=== PATIENT | female | born 1995 | race Caucasian/White ===

== ENCOUNTER 2022-04-28 07:00 | Inpatient (IN) | payer OTHER, SELFPAY ==
[2022-04-28] VITALS (7 sets, daily range): BP systolic 116–138; BP diastolic 60–83
[~2022-04-28] VITALS: Ht 167.6 cm; Wt 79.9 kg
[~2022-04-28 07:00] MED LIST: GNP28TAB2 PO; ZYRTTAB8 PO
[2022-04-28] MEDS ORDERED: OXYTOCIN 30 UNITS IN 0.9% NaCl 500ML IV BAG (J2590) As Ordered ONE ×2 (07:16→11:01)
[2022-04-28] MEDS ORDERED: PHENYLephrine 500MCG 5ML (100MCG/ML) SYRINGE As Ordered ONE (07:16)
[2022-04-28] MEDS ORDERED: ePHEDrine SULFATE 25 MG/5 ML(5MG/ML) SYRINGE As Ordered ONE (07:16)
[2022-04-28] MEDS ORDERED: LR 1,000 ML IV SCH ×2 (07:20→07:30)
[2022-04-28] MEDS ORDERED: BICITRA 30ML SOLN UDC PO ONE (07:20)
[2022-04-28] MEDS ORDERED: LR 1,000 ML IV ONE ×2 (07:30→18:05)
[2022-04-28] MEDS ORDERED: ceFAZolin SOD 2 GM in IV 1 EA IV ONE (07:30)
[2022-04-28 07:52] LABS: HEMATOCRIT 38.3 % (36.0-47.0); HEMOGLOBIN 12.7 g/dl (12.0-15.5); MEAN CORPUSCULAR HEMOGLOBIN 28.8 pg (27.0-33.0); MEAN CORPUSCULAR HGB CONC 33.2 g/dl (32.0-36.5); MEAN CORPUSCULAR VOLUME 86.8 fl (80.0-96.0); PLATELET COUNT, AUTOMATED 158 10^3/uL (150-450); RED BLOOD COUNT 4.41 10^6/uL (4.00-5.40); WHITE BLOOD COUNT 10.2 10^3/uL (4.0-10.0)
[2022-04-28] MEDS ORDERED: HOME MED LIST COMPLETE! XX SCH (08:50)
[2022-04-28] MEDS: PRENATAL VITAMINS CHEWABLE TABLET PO SCH (09:00)
[2022-04-28] MEDS ORDERED: MORPHINE PRES-FREE INJ 10 MG/10 ML VIAL As Ordered ONE (09:32)
[2022-04-28] MEDS ORDERED: BUPIVACAINE HCL 0.25% 10ML VIAL IM STA (09:48)
[2022-04-28] MEDS ORDERED: ONDANSETRON 4MG 2ML VIAL As Ordered ONE (10:06)
[2022-04-28] MEDS ORDERED: KETOROLAC 60MG 2ML VIAL As Ordered ONE (10:06)
[2022-04-28] MEDS ORDERED: OXYTOCIN DRIP 30 UNITS in IV 1 EA IV SCH ×4 (10:50)
[2022-04-28] MEDS ORDERED: ONDANSETRON 4MG 2ML VIAL IV PRN ×2 (10:50→11:15)
[2022-04-28] MEDS ORDERED: ANUSOL HC CREAM 30GM TOP PRN (10:50)
[2022-04-28] MEDS ORDERED: MORPHINE 2 MG/ML 1ML VIAL IV PRN (10:50)
[2022-04-28] MEDS ORDERED: RHOGAM 300 MCG (1500 IU) INJ (J2790) IM SCH (10:50)
[2022-04-28] MEDS ORDERED: ACETAMINOPHEN 500 MG TAB PO PRN (10:50)
[2022-04-28] MEDS ORDERED: DOCUSATE SODIUM 100MG CAPSULE PO PRN (10:50)
[2022-04-28] MEDS ORDERED: SIMETHICONE 80MG CHEW TAB PO PRN (10:50)
[2022-04-28] MEDS ORDERED: oxyCODONE 5MG TAB PO PRN ×3 (10:50→11:15)
[2022-04-28] MEDS ORDERED: METHYLERGONOVINE MALEATE 0.2 MG/ML VIAL (J2210) IM PRN (10:50)
[2022-04-28] MEDS ORDERED: METOCLOPRAMIDE INJ 10MG/2ML VIAL (J2765 PER 1) IV PRN (11:15)
[2022-04-28] MEDS ORDERED: **NOTE PATIENT COMMENT** MISC XX SCH (11:15)
[2022-04-28] MEDS ORDERED: diphenhydrAMINE 50MG/ML VIAL IV PRN (11:15)
[2022-04-28] MEDS: SLF 3 ML SYR IV SCH ×2 (11:15→19:15)
[2022-04-28] MEDS ORDERED: fentaNYL 100 MCG/2 ML INJECTION IV PRN (11:15)
[2022-04-28] MEDS ORDERED: NALOXONE INJ 0.4MG/1ML VIAL (J2310 PER 1MG) IV PRN ×2 (11:15)
[2022-04-28] MEDS: KETOROLAC 30 MG/ML 1ML VIAL IV SCH ×2 (16:46→22:14)
[2022-04-28] MEDS: ENOXAPARIN 40MG/0.4ML SYRINGE (J1650 PER 10MG) SC SCH (16:47)
[2022-04-28] MEDS ORDERED: LR 500 ML IV ONE (18:10)
[2022-04-29] MEDS: KETOROLAC 30 MG/ML 1ML VIAL IV SCH (04:07)
[2022-04-29] MEDS: SLF 3 ML SYR IV SCH (04:08)
[2022-04-29 06:00] VITALS: BP 122/68
[2022-04-29 06:50] LABS: HEMATOCRIT 30.4 % (36.0-47.0); MEAN CORPUSCULAR HEMOGLOBIN 28.9 pg (27.0-33.0); MEAN CORPUSCULAR HGB CONC 32.6 g/dl (32.0-36.5); MEAN CORPUSCULAR VOLUME 88.9 fl (80.0-96.0); PLATELET COUNT, AUTOMATED 136 10^3/uL (150-450); RED BLOOD COUNT 3.42 10^6/uL (4.00-5.40); WHITE BLOOD COUNT 12.4 10^3/uL (4.0-10.0)
[2022-04-29 07:00] LABS: HEMOGLOBIN 9.9 g/dl (12.0-15.5)
[2022-04-29] MEDS: PRENATAL VITAMINS CHEWABLE TABLET PO SCH (08:22)
[2022-04-29 10:00] VITALS: BP 120/66
[2022-04-29] MEDS: IBUPROFEN 800 MG TAB PO SCH ×2 (12:27→19:18)
[2022-04-29 14:00] VITALS: BP 127/68
[2022-04-29] MEDS: ENOXAPARIN 40MG/0.4ML SYRINGE (J1650 PER 10MG) SC SCH (17:14)
[2022-04-29 18:00] VITALS: BP 124/66
[2022-04-29 22:00] VITALS: BP 122/67
[2022-04-30 02:00] VITALS: BP 138/78
[2022-04-30] MEDS: IBUPROFEN 800 MG TAB PO SCH ×2 (04:03→11:47)
[2022-04-30 06:00] VITALS: BP 131/71
[2022-04-30] MEDS: PRENATAL VITAMINS CHEWABLE TABLET PO SCH (08:22)
[2022-04-30] MEDS ORDERED: MEASLES,MUMPS,RUBELLA VACCINE INJ (MMR-II) (90707) SC.IMMUN ONE (09:00)
[2022-04-30] MEDS ORDERED: IBUP80TA PO (09:05)
[2022-04-30] MEDS ORDERED: COLA100C5 PO (09:05)
[2022-04-30] MEDS ORDERED: ACET-683 PO (09:05)
== END 2022-04-30 12:50 | disposition home or self-care (01) | DRG 773 ==
LOC: M LDI 07:00 → M OBS 12:16
PROVIDERS: ADMIT Obstetrics & Gynecology; ATTEND Obstetrics & Gynecology
PROC: 10D00Z1 Extraction of Products of Conception, Low, Open Approach (ICD-10-PCS; principal; 2022-04-28 09:30)
DX: O32.1XX0 Maternal care for breech presentation, not applicable or unspecified (principal); Z3A.39 39 weeks gestation of pregnancy; Z37.0 Single live birth